=== PATIENT | male | born 1965 ===

== ENCOUNTER 2016-07-26 08:26 | Day surgery (SDC) | payer OTHER ==
[~2016-07-26] VITALS: Ht 177.8 cm; Wt 61.5 kg
[2016-07-26 08:52] VITALS: BP 96/78; PULSE 107; RESP 20; TEMP 98.1; O2SAT 98
[2016-07-26] MEDS ORDERED: ATOR40TA16 PO (08:55)
[2016-07-26] MEDS ORDERED: PROS5TAB PO (08:55)
[2016-07-26] MEDS ORDERED: GABA600T PO (08:55)
[2016-07-26] MEDS ORDERED: TAMS0.4C4 PO (08:55)
[2016-07-26] MEDS ORDERED: DILA100C PO (08:55)
[2016-07-26] MEDS ORDERED: DIAZ5 PO (08:55)
[2016-07-26] MEDS ORDERED: DOCQ100C2 PO (08:55)
[2016-07-26] MEDS ORDERED: METO25TA3 PO (08:55)
[2016-07-26] MEDS ORDERED: MSIR15 PO (08:55)
[2016-07-26] MEDS ORDERED: MORP1TAB25 PO (08:55)
[2016-07-26] MEDS ORDERED: FENO160T PO (08:55)
[2016-07-26] MEDS ORDERED: DEPA500T PO (08:55)
[2016-07-26 09:34] LABS: AUTOMATED NEUTROPHIL # 3.7 TH/MM3 (1.8-7.7); BASOPHIL % 0.4 % (0.0-2.0); EOSINOPHIL # 0.1 TH/MM3 (0-0.4); EOSINOPHIL % 0.8 % (0.0-4.0); HEMO FLAGS DIFF FINAL; LYMPH % 31.2 % (9.0-44.0); MEAN CELL VOLUME 93.8 FL (80.0-100.0); MEAN CORPUSCULAR HEMOGLOBIN 33.7 PG (27.0-34.0); MEAN CORPUSCULAR HGB CONC 35.9 % (32.0-36.0); NEUT % 58.6 % (16.0-70.0); PLATELET COUNT 226 TH/MM3 (150-450); RED BLOOD COUNT 5.33 MIL/MM3 (4.50-5.90); RED CELL DISTRIBUTION WIDTH 11.9 % (11.6-17.2); WHITE BLOOD COUNT 6.3 TH/MM3 (4.0-11.0)
[2016-07-26] MEDS ORDERED: SODIUM CHLOR 0.9% 1000 ML INJ 1,000 ML IV SCH (09:45)
[2016-07-26 09:50] LABS: PROTHROMBIN TIME - PATIENT 10.8 SEC (9.8-11.6)
[2016-07-26 09:51] LABS: APTT (PATIENT) 26.5 SEC (24.3-30.1)
[2016-07-26 10:08] LABS: BICARBONATE 28.6 MEQ/L (21.0-32.0)
[2016-07-26 10:15] VITALS: BP 118/78; PULSE 84; RESP 18; TEMP 98.4; O2SAT 98
--- NOTE | 2016-07-26 10:19 | PD.RAD ---
Post Procedure Progress Note Pre Procedure Diagnosis: (1) Lower extremity weakness (2) Dementia Post Procedure Diagnosis: (1) Lower extremity weakness (2) Dementia Procedure Date: Jul 26, 2016 Supervising Radiologist: Remy Ochoa Anesthesia: Local Plan of Activity Patient to Unit: ROPU Patient Condition: Poor Additional Comments: LP completed without difficulty. 22cc of clear csf removed. See PACS Report for procedural detail/treatment Remy Ochoa MD Jul 26, 2016 10:19
[2016-07-26 11:32] LABS: CSF LYMPHOCYTES 100 %; CSF NEUTROPHILS 0 %; GROSS BLOOD TUBE #1 TRACE (0); GROSS BLOOD TUBE #2 TRACE (0); GROSS BLOOD TUBE #3 TRACE (0); GROSS BLOOD TUBE #4 0 (0); SUPERNATE COLOR TUBE #1 CLEAR (CLEAR); SUPERNATE COLOR TUBE #2 CLEAR (CLEAR); SUPERNATE COLOR TUBE #3 CLEAR (CLEAR); SUPERNATE COLOR TUBE #4 CLEAR (CLEAR); VOLUME TUBE # 3 4.3 ML; VOLUME TUBE # 4 5.8 ML; WBC TUBE #4 2 /MM3 (0-10)
[2016-07-26 11:47] VITALS: BP 110/74; PULSE 76; RESP 18; O2SAT 97
--- NOTE | 2016-07-26 16:51 | RADRPT ---
EXAM DATE/TIME: 07/26/2016 10:02 [facility] COMPARISON: No previous studies available for comparison. INDICATIONS : Patient with history of neuropathy in need of lumbar puncture. MEDICAL HISTORY : HLD, Diabetes, Cardiac arrthymia, Seizures, Lumbosacral spondylosis, Radiculopathy SURGICAL HISTORY : Cervical and lumbar surgery, Right knee surgery, Cystoscopies, Hernia repair ENCOUNTER: Initial ACUITY: > 1 year PAIN SCORE: 8/10 LOCATION: Abdomen/Bladder LUMBAR PUNCTURE TIME: 1005 hours FLUORO TIME: 1.8 minutes IMAGE SERIES: 0 ACCESS LEVEL: L3-4 FLUID: 22 cc of clear CSF was collected and sent to the laboratory for analysis. PROCEDURE : 1. Fluoroscopic guided lumbar puncture. The risks, benefits and alternatives to the procedure were explained and verbal and written consent w as obtained. The site was prepped in sterile fashion. Full sterile technique was used, including ca p, mask, sterile gloves and gown and a large sterile sheet. Hand hygiene and 2% chlorhexidine and/or betadine/alcohol prep was utilized per protocol for cutaneous antisepsis. The skin and subcutaneous tissues were infiltrated with local anesthetic solution. With fluoroscopic guidance the lumbar thecal sac was punctured at the level above. The fluid describ ed above was removed without difficulty. The patient tolerated the procedure well and there were no complications. CONCLUSION: Uncomplicated fluoroscopically guided lumbar puncture. Remy Ochoa MD on July 26, 2016 at 16:48 Board Certified Radiologist. This report was verified electronically.
[2016-07-28 12:17] LABS: ALBUMIN SERUM 3880 mg/dL (3200 - 4800); IGG CSF 1.3 mg/dL (<=8.1); IGG INDEX CSF 0.56 (<=0.85); IGG SERUM 709 mg/dL (767 - 1590); IGG/ALBUMIN SERUM 0.18 (<=0.40); OLIGOCLONAL BANDING CSF 2 bands (()); OLIGOCLONAL BANDING INTERPRET 1 bands (<4); OLIGOCLONAL BANDING SERUM 1 bands (()); SYNTHESIS RATE CSF 0.17 mg/24 h (<=12)
[2016-07-28 19:53] LABS: VDRL CSF NON-REACTIVE (())
[2016-07-29 10:33] LABS: CSF CRYPTOCOCCUS AG CONF ND (NOT DETECTD)
[2016-07-29 15:18] LABS: LYME IGG IMMUNOBLOT CSF None Detected bands (None Detected); LYME IGM IMMUNOBLOT CSF None Detected bands (None Detected)
== END 2016-07-26 13:15 | disposition home or self-care (01) ==
LOC: HRIP 08:26 → HROP 08:26
PROVIDERS: ATTEND Psychiatry & Neurology Neurology
DX: G60.3 Idiopathic progressive neuropathy (principal); E11.9 Type 2 diabetes mellitus without complications; E78.5 Hyperlipidemia, unspecified; F03.90 Unspecified dementia, unspecified severity, without behavioral disturbance, psychotic disturbance, mood disturbance, and anxiety
CPT/HCPCS: 62270; 77001; 80048; 82040; 82042; 82784; 82945; 83873; 83916; 84157; 85025; 85610; 85730; 86403; 86592; 86618; 87015; 87070; 87102; 87116; 87205; 87206; 89051; J7030